=== PATIENT | female | born 1950 | race American Indian/Alaskan Native ===

== ENCOUNTER 2018-03-24 07:13 | Day surgery (SDC) | payer BC, OTHER ==
[~2018-03-24] VITALS: Ht 154.9 cm; Wt 86.6 kg
[~2018-03-24 07:13] MED LIST: ASPIRIN EC81 MG PO; CHOLESTEROL; CIPRO500 MG PO; CRESTOR20 MG PO; D3 DOTS2000 UNIT PO; FLAGYL250 MG PO; FLONASE SENSIM5.9 ML NAS; METFORMIN HCL500 MG PO; NORCO 5-325 TA1 EACH PO; OMEGA-31000 MG PO; PROTONIX40 MG PO
--- NOTE | 2018-03-24 09:40 | NUR ---
03/24/18 0992 Kimmie Burciaga 0975-PATIENT ARRIVED TO PACU ON 3L NC O2 SAT 90% INCREASED TO 98% RR EVEN PATIENT REACTIVE TO VOICE OPENS EYES AND BACK TO SLEEP VERY DROWSY. ABDOMEN SOFT. LAYING LEFT LATERAL. GLUCOSE 159
--- NOTE | 2018-03-24 10:25 | OR ---
[facility] [address] [place], [place] [address] Signed DATE OF OPERATION: 03/24/2018 SURGEON: Emeka Benitez MD PREOPERATIVE DIAGNOSES: 1. Screening. 2. Diverticulosis. POSTOPERATIVE DIAGNOSIS: Mild to moderate sigmoid diverticulosis. PROCEDURE: Colonoscopy without biopsy. ESTIMATED BLOOD LOSS: None. INDICATIONS: Francisco is a 67-year-old female, who was asked to see me for followup colonoscopy. In 2007, she had tiny hyperplastic polyps removed from the rectum. She also had minimal diverticulosis in the left side of her colon. In the meantime, she says she is doing great. There is no family history of colon cancer or polyps. I met with Francisco in the office and I gave her a pamphlet on colonoscopy. We discussed the nature of the colonoscopy along with its risks including, but not limited to gas bloating, crampy abdominal pain, bleeding, perforation, requiring surgery, and missed diagnosis. She also understands the need for IV conscious sedation. She had expressed understanding and wished to proceed. PROCEDURE NOTE: Francisco was taken into our endoscopy suite and placed in the left lateral decubitus position. She was given IV sedation with 7 mg of Versed and 125 mcg of fentanyl. A digital rectal exam was performed and this was unremarkable. The adult colonoscope was introduced and advanced all around into the cecum under direct visualization of camera without difficulty. She had just a little bit of pain as we got into the proximal one-half of the right colon. Her prep was good. The scope was slowly withdrawn. She had minimal to moderate diverticula in the left and sigmoid colon. They were minimal to moderate in size, minimal to moderate in number, and scattered about. The rectum was unremarkable. Upon retroflexion of the scope, there was no pathology noted above the anal canal. After this, the gas was suctioned out and colonoscope removed. Francisco tolerated the procedure quite well. Electronically Signed By: EMEKA BENITEZ MD 03/24/18 1025 PATIENT NAME: PALMAPALMERFRANCISCO OPERATIVE REPORT DATE OF : 54 REPORT #: [id number] PHYSICIAN: EMEKA BENITEZ MD PCP: JARRED ODONNELL MD REPORT IS CONFIDENTIAL AND NOT TO BE RELEASED WITHOUT AUTHORIZATION [address] [address] Signed RECOMMENDATIONS: Francisco can follow up in 10 years for repeat colonoscopy. Emeka Benitez MD ALB/MODL /[id number] cc: MD Emeka Slaughter MD Copies: JARRED ODONNELL MD, ANDREW L MD ~ Electronically Signed By: EMEKA BENITEZ MD 03/24/18 1025 PATIENT NAME: BLASFRANCISCO Johnson OPERATIVE REPORT DATE OF : 54 REPORT #: [id number] PHYSICIAN: EMEKA BENITEZ MD PCP: JARRED ODONNELL MD REPORT IS CONFIDENTIAL AND NOT TO BE RELEASED WITHOUT AUTHORIZATION
--- NOTE | 2018-03-24 10:42 | NUR ---
I WAS ABLE TO CONNECT WITH PT BEFORE RN STARTED PREPPING. PT SEEMED TO REALIZE THAT THIS IS ONE OF THOSE THINGS IN LIFE THAT WE JUST "NEED TO DO". SEEMED TO HAVE A GOOD ATTITUDE, EXTENDED A BLESSING, WILL FOLLOW NEEDED
== END 2018-03-24 10:42 | disposition home or self-care (01) ==
LOC: OPS 07:13 → DS 07:13 → OPS 09:00 → DS 09:00 → OPS 10:42
PROVIDERS: Colon & Rectal Surgery
PROC: 0DJD8ZZ Inspection of Lower Intestinal Tract, Via Natural or Artificial Opening Endoscopic (ICD-10-PCS; principal; 2018-03-24 09:00)
DX: Z12.11 Encounter for screening for malignant neoplasm of colon (principal); K57.30 Diverticulosis of large intestine without perforation or abscess without bleeding; E78.5 Hyperlipidemia, unspecified; E55.9 Vitamin D deficiency, unspecified; E66.9 Obesity, unspecified; E03.9 Hypothyroidism, unspecified; E11.9 Type 2 diabetes mellitus without complications; M10.9 Gout, unspecified; Z79.82 Long term (current) use of aspirin; Z79.51 Long term (current) use of inhaled steroids; Z79.899 Other long term (current) drug therapy; Z98.890 Other specified postprocedural states; Z68.36 Body mass index [BMI] 36.0-36.9, adult; Z79.84 Long term (current) use of oral hypoglycemic drugs
CPT/HCPCS: 99153; G0500; J2250; J3010; J7120

== ENCOUNTER 2021-08-17 15:19 | Emergency (ER) | payer BC, OTHER ==
[~2021-08-17] VITALS: Ht 154.9 cm; Wt 86.6 kg
== END 2021-08-17 23:56 | disposition home or self-care (01) ==
LOC: ED 15:19
DX: U07.1 COVID-19 (principal); E11.9 Type 2 diabetes mellitus without complications; F17.200 Nicotine dependence, unspecified, uncomplicated; Z79.899 Other long term (current) drug therapy; Z79.82 Long term (current) use of aspirin; Z79.84 Long term (current) use of oral hypoglycemic drugs; E66.9 Obesity, unspecified; Z68.36 Body mass index [BMI] 36.0-36.9, adult; Z23 Encounter for immunization
CPT/HCPCS: 99283-25; M0243; Q0244

== ENCOUNTER 2025-05-29 10:30 | Emergency (ER) | payer BC, OTHER ==
[~2025-05-29] VITALS: Ht 154.9 cm; Wt 76.0 kg
[2025-05-29 11:09] LABS: BASOPHILS 0.4 % (0.1-1.2); EOSINOPHILS 1.9 % (0.7-5.8); LYMPHOCYTES 28.8 % (19.3-51.7); MCH 29.9 PG (25.6-32.2); MCHC 33.7 g/dL (32.2-35.5); MCV 88.5 fL (79.4-94.8); MONOCYTES 6.1 % (4.7-12.5); NEUTROPHILS 62.6 % (34.0-71.1); RBC 4.79 M/uL (3.93-5.22)
[2025-05-29] MEDS ORDERED: HYDROmorphone HCL 1 MG/ML SYR IV PRN (11:15)
[2025-05-29] MEDS ORDERED: SODIUM CHLORIDE 0.9% 1,000 ML IV ONE (11:15)
[2025-05-29 11:16] LABS: BLOOD/HGB, URINE TRACE-I (Negative); KETONE, URINE NEGATIVE (Negative); LEUK ESTERASE, URINE NEGATIVE (negative); NITRITE, URINE NEGATIVE (negative)
[2025-05-29 11:20] LABS: ALT (SGPT) 20.0 U/L (14-59); AST (SGOT) 14.0 U/L (15-37); GLOMERULAR FILTRATION RATE,EST 87.0 mL/min (>60); PROTEIN, TOTAL 7.9 g/dL (6.4-8.2); UREA NITROGEN 9.0 mg/dL (7-18)
[2025-05-29 11:24] LABS: BACTERIA, URINE NONE SEEN /hpf (negative); CASTS, URINE NONE SEEN \\lpf; CRYSTALS, URINE NONE SEEN (0-1+); EPITHELIAL CELLS, URINE SQUAMOUS 1+ /lpf (0-1+); REFLEX CULTURE, URINE No (No)
[2025-05-29] MEDS ORDERED: HYDROCODON-ACE1 EA10 PO (12:21)
[2025-05-29] MEDS ORDERED: ONDANSETRON ODT8 MG PO (12:21)
[2025-05-29] MEDS ORDERED: AMOX TR-K CLV1 EAC1 PO (12:21)
[2025-05-29] MEDS ORDERED: AMP/SULBACTAM SOD 3 GM in SODIUM CHLORIDE 0.9% 100 ML IV ONE (12:30)
[2025-05-29 13:25] VITALS: BP 115/75
== END 2025-05-29 13:26 | disposition home or self-care (01) ==
LOC: ED 10:30
PROVIDERS: Emergency Medicine
DX: K57.32 Diverticulitis of large intestine without perforation or abscess without bleeding (principal); E78.00 Pure hypercholesterolemia, unspecified; E10.9 Type 1 diabetes mellitus without complications; F17.200 Nicotine dependence, unspecified, uncomplicated; Z79.84 Long term (current) use of oral hypoglycemic drugs; Z79.51 Long term (current) use of inhaled steroids; Z79.82 Long term (current) use of aspirin; Z79.899 Other long term (current) drug therapy
CPT/HCPCS: 36415; 74177; 80053; 81001; 83690; 85025; 96361; 96365; 96375; 99284-25; J0295; J1171; J2405; J7030; Q9967